=== PATIENT | male | born 1960 | race Caucasian/White ===

== ENCOUNTER 2019-10-13 10:02 | Emergency (ER) | payer MEDICARE, BC ==
[~2019-10-13] VITALS: Ht 172.7 cm; Wt 72.6 kg
[~2019-10-13 10:02] MED LIST: ATEN25 PO; Bactrim Ds Tab1 EACH PO; CILO100 PO; CITA20 PO; CLOP75 PO; GABA600 PO; GABA800 PO; HYDACE10B PO; HYDMOR2 PO; HYDMOR4 PO; HYDROCODON-ACE1 EAC4 PO; LEVSOD125 PO; LEVSOD25 PO; LIDO5TP TOP; METCAR500 PO; Norco 5-325 Ta1 EACH PO; ONDA4ODT SL; Protonix40 MG PO; SSRI; Zofran8 MG PO
[2019-10-13 10:53] LABS: BASOPHILS ABSOLUTE AUTO 0.06 K/mm3 (0.00-0.23); BASOPHILS PERCENT AUTO 1 % (0-2); EOSINOPHILS ABSOLUTE AUTO 0.07 K/mm3 (0.00-0.68); EOSINOPHILS PERCENT AUTO 1 % (0-6); Hemoglobin 13.8 g/dL (13.5-17.5); IMMATURE GRAN ABSOLUTE AUTO 0.03 K/mm3 (0.00-0.10); IMMATURE GRAN PERCENT AUTO 0 % (0-1); LYMPHOCYTES ABSOLUTE AUTO 1.66 K/mm3 (0.84-5.20); LYMPHOCYTES PERCENT AUTO 17 % (21-46); MONOCYTES ABSOLUTE AUTO 0.35 K/mm3 (0.16-1.47); MONOCYTES PERCENT AUTO 4 % (4-13); Mean Corpuscular HGB 31.7 pg (26.0-34.0); Mean Corpuscular HGB Conc 33.7 g/dL (31.5-36.5); Mean Corpuscular Volume 94 fL (80-100); Mean Platelet Volume 9.9 fL (9.1-12.4); NEUTROPHILS ABSOLUTE AUTO 7.53 K/mm3 (1.96-9.15); NEUTROPHILS PERCENT AUTO 78 % (41-73); Platelet Count 214 K/mm3 (150-400); RDW Coefficient Variation 13.8 % (11.7-14.2); RDW Standard Deviation 47.7 fL (35.1-46.3); Red Blood Cell Count 4.36 M/mm3 (4.30-5.90)
[2019-10-13 11:02] LABS: Base Excess Venous -1.1 mmol/L; Bicarbonate Venous 25.3 mmol/L (24.0-30.0); PCO2 Venous 19.5 mmHg (38-42); PO2 Venous 62.9 mmHg (38-42)
[2019-10-13 11:03] LABS: pH Blood Venous 7.62 (7.34-7.37)
[2019-10-13 11:04] LABS: Alanine Aminotransfer (ALT/SGP 20 U/L (12-78); Albumin, Blood 3.6 g/dL (3.4-5.0); Albumin/Globulin Ratio 0.9 (0.8-1.8); Anion Gap 11 mmol/L (6-16); Aspartate Aminotrans (AST/SGOT 20 U/L (12-37); Bilirubin, Total 0.2 mg/dL (0.1-1.0); Blood Urea Nitrogen 12 mg/dL (8-24); CO2, Blood 21 mmol/L (21-32); Calcium, Blood 9.1 mg/dL (8.5-10.1); Chloride, Blood 109 mmol/L (98-108); Creatinine, Blood 0.75 mg/dL (0.60-1.20); Glomerular Filtration Rate >60 (60-); Glucose, Blood 148 mg/dL (70-99); Sodium, Blood 141 mmol/L (136-145); Total Protein, Blood 7.6 g/dL (6.4-8.2)
[2019-10-13 11:06] LABS: Alk Phos 83 U/L (50-136); Troponin I <0.015 ng/mL (0.000-0.040)
[2019-10-13 12:22] LABS: Source, Urine Voided
[2019-10-13 12:27] LABS: Bilirubin, Urine Neg (Neg); Blood, Urine Neg (Neg); Glucose Qualitative, Urine Neg (Neg); Ketones, Urine 2+ (Neg); Leukocyte Esterase, Urine Neg (Neg); Nitrite, Urine Neg (Neg); Protein, Urine Neg (Neg); Urobilinogen, Urine NORM (Normal)
[2019-10-13 12:28] LABS: Appearance, Urine Clear (Clear); Color, Urine Yellow (P-Yellow)
[2019-10-13] MEDS ORDERED: Ativan1 MG SL (13:00)
[2019-10-14] MEDS ORDERED: ATOR20 PO (09:37)
[2019-10-14] MEDS ORDERED: AMIT50 PO (09:37)
== END 2019-10-13 13:18 | disposition home or self-care (01) ==
LOC: ER 10:02
PROVIDERS: Emergency Medicine
DX: R07.9 Chest pain, unspecified (principal); R10.13 Epigastric pain; R06.4 Hyperventilation; I10 Essential (primary) hypertension; E03.9 Hypothyroidism, unspecified; Z88.8 Allergy status to other drugs, medicaments and biological substances; Z79.899 Other long term (current) drug therapy; Z79.01 Long term (current) use of anticoagulants; Z87.891 Personal history of nicotine dependence
CPT/HCPCS: 36415; 71046; 80053; 81003; 82803; 83690; 83880; 84484; 85025; 93005; 93010; 96374; 96375; 99284-25; J1170; J2060; J2405

== ENCOUNTER 2019-10-14 08:23 | Emergency (ER) | payer MEDICARE, BC ==
[~2019-10-14] VITALS: Ht 175.3 cm; Wt 72.6 kg
[~2019-10-14 08:23] MED LIST changes: +Ativan1 MG SL
[2019-10-14 09:22] LABS: BASOPHILS ABSOLUTE AUTO 0.03 K/mm3 (0.00-0.23); BASOPHILS PERCENT AUTO 0 % (0-2); EOSINOPHILS ABSOLUTE AUTO 0.02 K/mm3 (0.00-0.68); EOSINOPHILS PERCENT AUTO 0 % (0-6); Hematocrit 40.5 % (37.0-53.0); Hemoglobin 13.7 g/dL (13.5-17.5); IMMATURE GRAN ABSOLUTE AUTO 0.01 K/mm3 (0.00-0.10); IMMATURE GRAN PERCENT AUTO 0 % (0-1); LYMPHOCYTES ABSOLUTE AUTO 1.77 K/mm3 (0.84-5.20); LYMPHOCYTES PERCENT AUTO 19 % (21-46); MONOCYTES ABSOLUTE AUTO 0.25 K/mm3 (0.16-1.47); MONOCYTES PERCENT AUTO 3 % (4-13); Mean Corpuscular HGB 31.9 pg (26.0-34.0); Mean Corpuscular HGB Conc 33.8 g/dL (31.5-36.5); Mean Corpuscular Volume 94 fL (80-100); Mean Platelet Volume 9.8 fL (9.1-12.4); NEUTROPHILS ABSOLUTE AUTO 7.09 K/mm3 (1.96-9.15); NEUTROPHILS PERCENT AUTO 77 % (41-73); Platelet Count 218 K/mm3 (150-400); RDW Standard Deviation 48.7 fL (35.1-46.3); Red Blood Cell Count 4.29 M/mm3 (4.30-5.90); White Blood Cell Count 9.17 K/mm3 (4.00-11.30)
[2019-10-14] MEDS ORDERED: AMIT50 PO (09:37)
[2019-10-14] MEDS ORDERED: ATOR20 PO (09:37)
[2019-10-14 09:45] LABS: Alanine Aminotransfer (ALT/SGP 17 U/L (12-78); Albumin, Blood 3.5 g/dL (3.4-5.0); Albumin/Globulin Ratio 0.9 (0.8-1.8); Alk Phos 88 U/L (50-136); Anion Gap 9 mmol/L (6-16); Aspartate Aminotrans (AST/SGOT 17 U/L (12-37); Bilirubin, Total 0.6 mg/dL (0.1-1.0); Blood Urea Nitrogen 11 mg/dL (8-24); CO2, Blood 23 mmol/L (21-32); Calcium, Blood 8.9 mg/dL (8.5-10.1); Chloride, Blood 110 mmol/L (98-108); Creatinine, Blood 0.73 mg/dL (0.60-1.20); Globulin, Blood 3.9 g/dL (2.2-4.0); Glomerular Filtration Rate >60 (60-); Glucose, Blood 151 mg/dL (70-99); Potassium, Blood 3.7 mmol/L (3.5-5.5); Sodium, Blood 142 mmol/L (136-145); Total Protein, Blood 7.4 g/dL (6.4-8.2)
[2019-10-14 09:46] LABS: Troponin I <0.015 ng/mL (0.000-0.040)
== END 2019-10-14 12:52 | disposition home or self-care (01) ==
LOC: ER 08:23
PROVIDERS: Emergency Medicine
DX: R10.30 Lower abdominal pain, unspecified (principal); I70.90 Unspecified atherosclerosis; I10 Essential (primary) hypertension; E03.9 Hypothyroidism, unspecified; E78.00 Pure hypercholesterolemia, unspecified; Z88.8 Allergy status to other drugs, medicaments and biological substances; Z79.899 Other long term (current) drug therapy
CPT/HCPCS: 74174; 80053; 83605; 83690; 84484; 85025; 96361; 96374; 96375; 99284-25; J1170; J2060; J2405; J7030; J7120; Q9967

== ENCOUNTER 2020-02-26 14:48 | Emergency (ER) | payer MEDICARE, BC ==
[~2020-02-26] VITALS: Ht 172.7 cm; Wt 72.6 kg
[~2020-02-26 14:48] MED LIST changes: +AMIT50 PO; +ATOR20 PO
[2020-02-26 15:33] LABS: BASOPHILS ABSOLUTE AUTO 0.02 K/mm3 (0.00-0.23); BASOPHILS PERCENT AUTO 0 % (0-2); EOSINOPHILS PERCENT AUTO 0 % (0-6); Hematocrit 39.5 % (37.0-53.0); Hemoglobin 13.5 g/dL (13.5-17.5); IMMATURE GRAN ABSOLUTE AUTO 0.02 K/mm3 (0.00-0.10); IMMATURE GRAN PERCENT AUTO 0 % (0-1); LYMPHOCYTES ABSOLUTE AUTO 1.21 K/mm3 (0.84-5.20); LYMPHOCYTES PERCENT AUTO 14 % (21-46); MONOCYTES ABSOLUTE AUTO 0.22 K/mm3 (0.16-1.47); MONOCYTES PERCENT AUTO 3 % (4-13); Mean Corpuscular HGB 31.8 pg (26.0-34.0); Mean Corpuscular HGB Conc 34.2 g/dL (31.5-36.5); Mean Corpuscular Volume 93 fL (80-100); Mean Platelet Volume 10.3 fL (9.1-12.4); NEUTROPHILS ABSOLUTE AUTO 7.15 K/mm3 (1.96-9.15); NEUTROPHILS PERCENT AUTO 83 % (41-73); Platelet Count 189 K/mm3 (150-400); RDW Coefficient Variation 13.8 % (11.7-14.2); Red Blood Cell Count 4.25 M/mm3 (4.30-5.90); White Blood Cell Count 8.62 K/mm3 (4.00-11.30)
[2020-02-26 15:45] LABS: Alanine Aminotransfer (ALT/SGP 17 U/L (12-78); Albumin, Blood 3.4 g/dL (3.4-5.0); Albumin/Globulin Ratio 0.8 (0.8-1.8); Alk Phos 72 U/L (50-136); Anion Gap 12 mmol/L (6-16); Aspartate Aminotrans (AST/SGOT 20 U/L (12-37); Bilirubin, Total 0.5 mg/dL (0.1-1.0); Blood Urea Nitrogen 12 mg/dL (8-24); Bun/Creatinine Ratio 18.4 (12.0-20.0); CO2, Blood 21 mmol/L (21-32); Calcium, Blood 8.8 mg/dL (8.5-10.1); Chloride, Blood 107 mmol/L (98-108); Creatinine, Blood 0.65 mg/dL (0.60-1.20); Glomerular Filtration Rate >60 (60-); Glucose, Blood 151 mg/dL (70-99); Magnesium, Blood 1.9 mg/dL (1.6-2.4); Potassium, Blood 3.8 mmol/L (3.5-5.5); Sodium, Blood 140 mmol/L (136-145); Total Protein, Blood 7.4 g/dL (6.4-8.2)
== END 2020-02-26 17:21 | disposition home or self-care (01) ==
LOC: ER 14:48
PROVIDERS: Emergency Medicine
DX: R10.12 Left upper quadrant pain (principal); I10 Essential (primary) hypertension; E03.9 Hypothyroidism, unspecified; E78.00 Pure hypercholesterolemia, unspecified; Z88.8 Allergy status to other drugs, medicaments and biological substances; Z79.899 Other long term (current) drug therapy; F17.210 Nicotine dependence, cigarettes, uncomplicated
CPT/HCPCS: 36415; 74174; 80053; 83605; 83690; 83735; 85025; 96374-59; 99284-25; J1170; Q9967

== ENCOUNTER 2021-02-16 11:40 | Emergency (ER) | payer MEDICARE, BC ==
[~2021-02-16] VITALS: Ht 175.3 cm; Wt 72.6 kg
[2021-02-16 12:36] LABS: BASOPHILS ABSOLUTE AUTO 0.04 K/mm3 (0.00-0.23); BASOPHILS PERCENT AUTO 1 % (0-2); EOSINOPHILS ABSOLUTE AUTO 0.01 K/mm3 (0.00-0.68); EOSINOPHILS PERCENT AUTO 0 % (0-6); Hematocrit 41.4 % (37.0-53.0); Hemoglobin 14.3 g/dL (13.5-17.5); IMMATURE GRAN ABSOLUTE AUTO 0.03 K/mm3 (0.00-0.10); IMMATURE GRAN PERCENT AUTO 0 % (0-1); LYMPHOCYTES ABSOLUTE AUTO 1.12 K/mm3 (0.84-5.20); LYMPHOCYTES PERCENT AUTO 14 % (21-46); MONOCYTES ABSOLUTE AUTO 0.25 K/mm3 (0.16-1.47); MONOCYTES PERCENT AUTO 3 % (4-13); Mean Corpuscular HGB 31.9 pg (26.0-34.0); Mean Corpuscular HGB Conc 34.5 g/dL (31.5-36.5); Mean Corpuscular Volume 92 fL (80-100); Mean Platelet Volume 9.9 fL (9.1-12.4); NEUTROPHILS ABSOLUTE AUTO 6.79 K/mm3 (1.96-9.15); NEUTROPHILS PERCENT AUTO 82 % (41-73); Platelet Count 202 K/mm3 (150-400); RDW Coefficient Variation 14.3 % (11.7-14.2); RDW Standard Deviation 48.9 fL (35.1-46.3); Red Blood Cell Count 4.48 M/mm3 (4.30-5.90); White Blood Cell Count 8.24 K/mm3 (4.00-11.30)
[2021-02-16 12:48] LABS: Alanine Aminotransfer (ALT/SGP 18 U/L (12-78); Albumin, Blood 3.6 g/dL (3.4-5.0); Albumin/Globulin Ratio 0.9 (0.8-1.8); Alk Phos 76 U/L (50-136); Anion Gap 9 mmol/L (6-16); Aspartate Aminotrans (AST/SGOT 19 U/L (12-37); Bilirubin, Total 0.4 mg/dL (0.1-1.0); Blood Urea Nitrogen 13 mg/dL (8-24); Bun/Creatinine Ratio 16.4 (12.0-20.0); CO2, Blood 22 mmol/L (21-32); Calcium, Blood 9.4 mg/dL (8.5-10.1); Chloride, Blood 106 mmol/L (98-108); Creatinine, Blood 0.79 mg/dL (0.60-1.20); Globulin, Blood 3.9 g/dL (2.2-4.0); Glomerular Filtration Rate >60 (60-); Glucose, Blood 148 mg/dL (70-99); Potassium, Blood 4.1 mmol/L (3.5-5.5); Sodium, Blood 137 mmol/L (136-145); Total Protein, Blood 7.5 g/dL (6.4-8.2)
== END 2021-02-16 15:10 | disposition home or self-care (01) ==
LOC: ER 11:40
PROVIDERS: Emergency Medicine
DX: R10.9 Unspecified abdominal pain (principal)
CPT/HCPCS: 74177; 80053; 83690; 85025; 93005; 93010; 96374-59; 96375; 99284-25; J1170; J2405; J7030; Q9967

== ENCOUNTER → 2021-05-21 | Outpatient (CLI) | payer MEDICARE, BC | LOC: LAB SHORT 14:50 → LAB 14:50 | DX: D48.5 Neoplasm of uncertain behavior of skin (principal) | CPT/HCPCS: 88305 ==

== ENCOUNTER → 2022-09-02 | Outpatient (CLI) | payer MEDICARE, BC | END | disposition home or self-care (01) | LOC: LAB 16:25 → LAB SHORT 16:25 | PROVIDERS: Hospitalist | DX: Z12.5 Encounter for screening for malignant neoplasm of prostate (principal) | CPT/HCPCS: G0103 ==

== ENCOUNTER 2023-09-13 18:19 | Emergency (ER) | payer MEDICARE, BC ==
[~2023-09-13] VITALS: Ht 170.2 cm; Wt 74.8 kg
[2023-09-13 19:00] LABS: BASOPHILS ABSOLUTE AUTO 0.09 K/mm3 (0.00-0.23); BASOPHILS PERCENT AUTO 1 % (0-2); EOSINOPHILS ABSOLUTE AUTO 0.01 K/mm3 (0.00-0.68); EOSINOPHILS PERCENT AUTO 0 % (0-6); Hematocrit 41.9 % (37.0-53.0); Hemoglobin 14.6 g/dL (13.5-17.5); IMMATURE GRAN ABSOLUTE AUTO 0.04 K/mm3 (0.00-0.10); IMMATURE GRAN PERCENT AUTO 0 % (0-1); LYMPHOCYTES ABSOLUTE AUTO 1.67 K/mm3 (0.84-5.20); LYMPHOCYTES PERCENT AUTO 12 % (21-46); MONOCYTES ABSOLUTE AUTO 0.46 K/mm3 (0.16-1.47); MONOCYTES PERCENT AUTO 3 % (4-13); Mean Corpuscular HGB 31.7 pg (26.0-34.0); Mean Corpuscular HGB Conc 34.8 g/dL (31.5-36.5); Mean Corpuscular Volume 91 fL (80-100); Mean Platelet Volume 9.4 fL (9.1-12.4); NEUTROPHILS ABSOLUTE AUTO 11.29 K/mm3 (1.96-9.15); NEUTROPHILS PERCENT AUTO 83 % (41-73); Platelet Count 241 K/mm3 (150-400); RDW Coefficient Variation 14.2 % (11.7-14.2); RDW Standard Deviation 47.3 fL (35.1-46.3); Red Blood Cell Count 4.61 M/mm3 (4.30-5.90); White Blood Cell Count 13.56 K/mm3 (4.00-11.30)
[2023-09-13 19:13] LABS: Albumin, Blood 3.8 g/dL (3.4-5.0); Albumin/Globulin Ratio 0.9 (0.8-1.8); Bilirubin, Total 0.4 mg/dL (0.1-1.0); Bun/Creatinine Ratio 14.1 (12.0-20.0); Calcium, Blood 9.5 mg/dL (8.5-10.1); Creatinine, Blood 0.78 mg/dL (0.60-1.20); Globulin, Blood 4.1 g/dL (2.2-4.0); Total Protein, Blood 7.9 g/dL (6.4-8.2)
[2023-09-13 19:22] LABS: International Normalized Ratio 1.04; Prothrombin Time Results 10.9 Sec (9.7-11.5)
[2023-09-13 22:34] LABS: Magnesium, Blood 1.9 mg/dL (1.6-2.4)
[2023-09-14 01:43] VITALS: BP 137/75
== END 2023-09-14 01:38 | disposition home or self-care (01) ==
LOC: ER 18:19
PROVIDERS: Emergency Medicine
DX: K55.1 Chronic vascular disorders of intestine (principal); K86.1 Other chronic pancreatitis; R07.9 Chest pain, unspecified; I10 Essential (primary) hypertension; D69.6 Thrombocytopenia, unspecified; E03.9 Hypothyroidism, unspecified; E78.00 Pure hypercholesterolemia, unspecified; F17.210 Nicotine dependence, cigarettes, uncomplicated; Z79.899 Other long term (current) drug therapy; Z88.4 Allergy status to anesthetic agent; Z88.5 Allergy status to narcotic agent
CPT/HCPCS: 71045; 74174; 80053; 83605; 83690; 83735; 84145; 84484; 85025; 85610; 85730; 93005; 93010; 96374; 96375; 99285-25; J1170; J2405; J7030; Q9967

== ENCOUNTER 2023-09-16 06:03 | Day surgery (SDC) | payer MEDICARE, BC ==
[2023-09-16] VITALS (33 sets, daily range): BP systolic 106–151; BP diastolic 64–92
[~2023-09-16] VITALS: Ht 170.2 cm; Wt 73.2 kg
[2023-09-16] MEDS ORDERED: CLOP75 PO (06:22)
[2023-09-16] MEDS ORDERED: CILO100 PO (06:23)
[2023-09-16] MEDS ORDERED: HYDMOR2 PO ×3 (10:33→18:00)
--- NOTE | 2023-09-16 10:34 | NUR ---
1015 LATE ENTRY- PT NOTED TO HAVE SWELLING AND A HARD PALPABLE MASS OVER INCISION UNDER DRESSING. I CONSULTED WITH SURGEON, SURGEON CONCERNED WITH POSSIBLE HEMATOMA. SURGEON SPOKE WITH PATIENT ABOUT THE NEED TO COME BACK TO THE OR TODAY FOR AN EVACUATION. I NOTIFIED THE RECIEVING RN, AND REQUESTED THAT THEY KEEP PT NPO. PT AGREES AND PTS DAUGHTER WAS NOTIFIED. PT TRANSFERED TO ROOM 217, STABLE, UNTIL TIME TO RETURN TO THE OR.
--- NOTE | 2023-09-16 11:04 | NUR ---
PATIENT ARRIVED FROM PACU TODAY AT 1030. POD 0 RIGHT TOTAL HIP PATIENT IS A&OX4. VS ARE WNL AND IS ON RA. AUTO VINYL TOP INSTALLER REPORTED AT BEDSIDE "THIS PATIENT IS GOING TO GO BACK TO THE OR SINCE HIS RIGHT HIP INCISION SITE IS HARD/SWOLLEN. DR. LEWIS IS AWARE AND HAS VIEWED THE INCISION WELL. KEEP HIM NPO WE WILL COME BACK TO GET HIM AGAIN IN A COUPLE OF HOURS". PATIENTS RIGHT HIP IS SWOLLEN AND HARD TO PALPATE. HIS AQUACEL DRESSING INTACT AT THIS TIME. PATIENT REPORTS 9/10 PAIN AND REPORTS "PRESSURE" ON THAT RIGHT HIP. PATIENT WAS GIVEN IV AND PO DILAUDID TO MANAGE HIS PAIN AT THIS TIME. HE IS ABLE TO MOVE ALL FINGERS AND TOES WHEN ASKED. PEDAL PULSES ARE STRONG AND WARM TO TOUCH. PATIENT IS LAYING IN BED WITH CALL LIGHT IN REACH. FAMILY AT BEDSIDE.
--- NOTE | 2023-09-16 11:43 | NUR ---
HARD PERSCRIPTION WAS GIVEN TO BRIELLE THE FAMILY MEMBER/CAREGIVER.
--- NOTE | 2023-09-16 12:26 | NUR ---
THIS NURSE OUTLINED WITH MARKER PATIENTS RIGHT HIP SWELLING.
--- NOTE | 2023-09-16 12:58 | NUR ---
PATIENT IS LEAVING FOR THE OR FOR THE SECOND TIME.
--- NOTE | 2023-09-16 13:23 | NUR ---
PT HERE FROM 217 VIA A BRING BACK. S/P RIGHT MARQUITA FOR HEMATOMA EVACUATION. PT HAS POLAR PACK IN PLACE. History, Chart, Medications and Allergies reviewed before start of procedure.Pre-Op teaching done. Pt verbalizes understanding. Patient confirms NPO status and agrees with scheduled surgery.
--- NOTE | 2023-09-16 13:48 | NUR ---
09/16/23 1348 Leah Ruiz NO PREOP ANTIBIOTICS PER .
--- NOTE | 2023-09-16 14:40 | NUR ---
ASSUMED CARE AT 1430 . PT A/O DENIES NEED OF PAIN MEDICATION AT THIS TIME RATES PAIN 8 /10 WENT OVER PAIN SCALE AND CONFIRMS YES IT IS AN 8 AND NO HE DOES NOT WANT ANY PAIN MEDICATION . DRSG IS CDI AREA IS SOFT TO TOUCH WIGGLES TOES SENSATION WNL EAGER FOR COFFEE VERY PLEASANT
--- NOTE | 2023-09-16 15:15 | NUR ---
PATIENT JUST CAME BACK FROM THE OR AGAIN. PATIENT HAD HIS RIGHT HIP HEMATOMA CLEANED OUT. PATIENT REPORTS "MY PAIN IS SO MUCH BETTER THAN WHAT IT WAS BEFORE! I DON'T EVEN NEED PAIN MEDS AT THIS TIME". HIS RIGHT HIP HAS AN AQUACEL AND IS C/D/I. PATIENTS RIGHT HIP SWELLING HAS SIGNIFICANTLY DECREASED SINCE PRIOR TO GOING TO THE OR A SECOND TIME. THERE IS NO HARDNESS NOTED ON HIS RIGHT HIP/GROIN AREA LIKE THERE WAS BEFORE. PATIENT DENIES NUMBNESS OR TINGLING IN ALL EXTREMITIES. HE IS TOLERATING PO INTAKE. HE IS LAYING IN BED WITH CALL LIGHT IN REACH AND FAMILY AT BEDSIDE.
--- NOTE | 2023-09-16 17:45 | NUR ---
SHIFT SUMMARY: POD 0 RIGHT TOTAL HIP WITH HEMATOMA I&D (SEE PREVIOUS NOTES) PATIENT IS A&OX4. VS ARE WNL AND IS ON RA. PAIN IS MANAGED WITH PO DILAUDID, PO TYLENOL, IV DILAUDID, AND IV TORADOL. HIS RIGHT HIP HAS AN AQUACEL THAT IS C/D/I. PATIENTS RIGHT HIP IS PALPABLE WITH NO HARDNESS OR SWELLING NOTED LIKE IT WAS PREVIOUS TO THE I&D. PATIENT DENIES NUMBNESS OR TINGLING AND CAN MOVE ALL FINGERS AND TOES. HE IS A SBA WITH FWW AND GAIT BELT AND HAS EVEN WALKED A COUPLE OF TIMES IN THE HALLWAYS. PATIENT IS TOLERATING PO INTAKE AND IS VOIDING. PATIENT IS SITTING UP IN THE RECLINER WITH CALL LIGHT IN REACH AND FAMILY AT BEDSIDE.
[2023-09-17 04:03] LABS: BASOPHILS ABSOLUTE AUTO 0.02 K/mm3 (0.00-0.23); BASOPHILS PERCENT AUTO 0 % (0-2); EOSINOPHILS ABSOLUTE AUTO 0.01 K/mm3 (0.00-0.68); EOSINOPHILS PERCENT AUTO 0 % (0-6); Hematocrit 29.8 % (37.0-53.0); IMMATURE GRAN ABSOLUTE AUTO 0.03 K/mm3 (0.00-0.10); IMMATURE GRAN PERCENT AUTO 0 % (0-1); LYMPHOCYTES ABSOLUTE AUTO 3.22 K/mm3 (0.84-5.20); LYMPHOCYTES PERCENT AUTO 25 % (21-46); MONOCYTES ABSOLUTE AUTO 1.06 K/mm3 (0.16-1.47); MONOCYTES PERCENT AUTO 8 % (4-13); Mean Corpuscular HGB 31.5 pg (26.0-34.0); Mean Corpuscular HGB Conc 33.6 g/dL (31.5-36.5); Mean Corpuscular Volume 94 fL (80-100); Mean Platelet Volume 9.6 fL (9.1-12.4); NEUTROPHILS ABSOLUTE AUTO 8.46 K/mm3 (1.96-9.15); NEUTROPHILS PERCENT AUTO 66 % (41-73); Platelet Count 149 K/mm3 (150-400); RDW Coefficient Variation 14.2 % (11.7-14.2); RDW Standard Deviation 49.8 fL (35.1-46.3); Red Blood Cell Count 3.17 M/mm3 (4.30-5.90)
[2023-09-17 04:18] LABS: Bun/Creatinine Ratio 18.4 (12.0-20.0); Calcium, Blood 7.9 mg/dL (8.5-10.1); Creatinine, Blood 0.76 mg/dL (0.60-1.20); Potassium, Blood 3.9 mmol/L (3.5-5.5)
[2023-09-17 05:59] VITALS: BP 124/76
--- NOTE | 2023-09-17 06:53 | NUR ---
SHIFT SUMMARY PT IS HERE POD#1 FOR A RIGHT TOTAL HIP. PT HAS BEEN UP WALKING THE HALLS OF THE UNIT SEVERAL TIMES THIS SHIFT. PAIN MANAGED PER EMAR. VITAL SIGNS HAVE BEEN STABLE. NO ACUTE EVENTS OVERNIGHT. BED IS IN LOWEST POSITION, CALL LIGHT IS WITHIN REACH.
[2023-09-17 08:56] VITALS: BP 141/85
--- NOTE | 2023-09-17 10:03 | NUR ---
DISCHARGE NOTE: PATIENT AND PATIENTS CAREGIVER BRIELLE WERE EDUCATED ON DISCHARGE INSTRUCTIONS. BOTH VERBALIZED UNDERSTANDING OF INSTRUCTIONS AND HAD NO FURTHER QUESTIONS AT THIS TIME. IV WAS TAKEN OUT AND WNL. PAIN IS MANAGED WITH ORAL PAIN MEDS. HIS RIGHT HIP HAS AN AQUACEL AND IS C/D/I. DENIES NUMBNESS OR TINGLING THROUGHOUT ALL EXTREMITIES. HE IS A SBA WITH FWW AND GAIT BELT. PATIENT IS TOLERATING PO INTAKE AND IS VOIDING. PATIENT IS DRESSED AND HAS PERSONAL ITEMS IN THE ROOM GATHERED. HE IS BEING WHEELCHAIRED OUT TO HIS FAMILY MEMBERS CAR TO BE TAKEN HOME.
== END 2023-09-17 10:05 | disposition home or self-care (01) ==
LOC: SURS 06:03 → ORSCMMR 06:03 → ORD 07:30 → SURS 10:03 → ORSCMMR 09-17 10:05
PROVIDERS: Orthopaedic Surgery
PROC: 0SR90JZ Replacement of Right Hip Joint with Synthetic Substitute, Open Approach (ICD-10-PCS; principal; 2023-09-16 07:30)
PROC: 0JCL0ZZ Extirpation of Matter from Right Upper Leg Subcutaneous Tissue and Fascia, Open Approach (ICD-10-PCS; principal; 2023-09-16 07:30)
DX: M16.11 Unilateral primary osteoarthritis, right hip (principal); L76.32 Postprocedural hematoma of skin and subcutaneous tissue following other procedure; E78.5 Hyperlipidemia, unspecified; I10 Essential (primary) hypertension; E03.9 Hypothyroidism, unspecified; F41.9 Anxiety disorder, unspecified; F32.A Depression, unspecified; Z79.899 Other long term (current) drug therapy; Z87.891 Personal history of nicotine dependence
CPT/HCPCS: 36415; 72170; 80048; 85025; 97110; 97116; 97162; A9270; C1776; J0171; J0690; J0735; J1100; J1170; J1885; J2250; J2371; J2405; J2704; J2795; J3010; J7120

== ENCOUNTER 2023-11-13 08:29 | Emergency (ER) | payer MEDICARE, BC ==
[~2023-11-13] VITALS: Ht 170.2 cm; Wt 72.6 kg
[2023-11-13] MEDS ORDERED: HYDROmorphone HCl/Pf 1MG SYR IV ONE ×2 (08:45→09:25)
[2023-11-13 09:06] LABS: BASOPHILS ABSOLUTE AUTO 0.06 K/mm3 (0.00-0.23); BASOPHILS PERCENT AUTO 1 % (0-2); EOSINOPHILS ABSOLUTE AUTO 0.02 K/mm3 (0.00-0.68); EOSINOPHILS PERCENT AUTO 0 % (0-6); Hematocrit 38.3 % (37.0-53.0); Hemoglobin 12.9 g/dL (13.5-17.5); IMMATURE GRAN ABSOLUTE AUTO 0.02 K/mm3 (0.00-0.10); IMMATURE GRAN PERCENT AUTO 0 % (0-1); LYMPHOCYTES ABSOLUTE AUTO 1.25 K/mm3 (0.84-5.20); LYMPHOCYTES PERCENT AUTO 14 % (21-46); MONOCYTES ABSOLUTE AUTO 0.42 K/mm3 (0.16-1.47); MONOCYTES PERCENT AUTO 5 % (4-13); Mean Corpuscular HGB 29.3 pg (26.0-34.0); Mean Corpuscular HGB Conc 33.7 g/dL (31.5-36.5); Mean Corpuscular Volume 87 fL (80-100); NEUTROPHILS ABSOLUTE AUTO 7.46 K/mm3 (1.96-9.15); NEUTROPHILS PERCENT AUTO 81 % (41-73); Platelet Count 261 K/mm3 (150-400); RDW Coefficient Variation 15.3 % (11.7-14.2); RDW Standard Deviation 48.9 fL (35.1-46.3); White Blood Cell Count 9.23 K/mm3 (4.00-11.30)
[2023-11-13 09:27] LABS: Albumin, Blood 3.4 g/dL (3.4-5.0); Albumin/Globulin Ratio 0.8 (0.8-1.8); Bilirubin, Total 0.4 mg/dL (0.1-1.0); Bun/Creatinine Ratio 12.3 (12.0-20.0); Calcium, Blood 9.4 mg/dL (8.5-10.1); Creatinine, Blood 0.73 mg/dL (0.60-1.20); Globulin, Blood 4.1 g/dL (2.2-4.0); Total Protein, Blood 7.5 g/dL (6.4-8.2)
[2023-11-13 12:49] VITALS: BP 123/80
== END 2023-11-13 12:54 | disposition home or self-care (01) ==
LOC: ER 08:29
PROVIDERS: Physician Assistant
DX: R10.12 Left upper quadrant pain (principal); R10.32 Left lower quadrant pain; R07.9 Chest pain, unspecified; F17.210 Nicotine dependence, cigarettes, uncomplicated; I10 Essential (primary) hypertension; E03.9 Hypothyroidism, unspecified; E78.00 Pure hypercholesterolemia, unspecified; Z87.19 Personal history of other diseases of the digestive system; Z79.02 Long term (current) use of antithrombotics/antiplatelets; Z79.899 Other long term (current) drug therapy; Z88.4 Allergy status to anesthetic agent; Z88.5 Allergy status to narcotic agent
CPT/HCPCS: 71046; 74177; 80053; 83605; 83690; 83880; 84484; 85025; 93005; 93010; 96374-59; 96376; 99285-25; J1170; Q9967

== ENCOUNTER 2023-12-01 10:36 | Emergency (ER) | payer MEDICARE, BC ==
[~2023-12-01] VITALS: Ht 172.7 cm; Wt 72.6 kg
[2023-12-01 11:03] LABS: BASOPHILS ABSOLUTE AUTO 0.06 K/mm3 (0.00-0.23); BASOPHILS PERCENT AUTO 1 % (0-2); EOSINOPHILS ABSOLUTE AUTO 0.02 K/mm3 (0.00-0.68); EOSINOPHILS PERCENT AUTO 0 % (0-6); Hemoglobin 14.3 g/dL (13.5-17.5); IMMATURE GRAN ABSOLUTE AUTO 0.03 K/mm3 (0.00-0.10); IMMATURE GRAN PERCENT AUTO 0 % (0-1); LYMPHOCYTES ABSOLUTE AUTO 1.72 K/mm3 (0.84-5.20); LYMPHOCYTES PERCENT AUTO 14 % (21-46); MONOCYTES ABSOLUTE AUTO 0.31 K/mm3 (0.16-1.47); MONOCYTES PERCENT AUTO 3 % (4-13); Mean Corpuscular HGB 29.2 pg (26.0-34.0); Mean Corpuscular HGB Conc 33.3 g/dL (31.5-36.5); Mean Corpuscular Volume 88 fL (80-100); Mean Platelet Volume 9.4 fL (9.1-12.4); NEUTROPHILS ABSOLUTE AUTO 9.96 K/mm3 (1.96-9.15); NEUTROPHILS PERCENT AUTO 82 % (41-73); Platelet Count 269 K/mm3 (150-400); RDW Coefficient Variation 15.8 % (11.7-14.2); RDW Standard Deviation 50.5 fL (35.1-46.3)
[2023-12-01 11:30] LABS: Albumin, Blood 3.8 g/dL (3.4-5.0); Albumin/Globulin Ratio 0.9 (0.8-1.8); Bilirubin, Total 0.4 mg/dL (0.1-1.0); Bun/Creatinine Ratio 17.5 (12.0-20.0); Calcium, Blood 9.6 mg/dL (8.5-10.1); Creatinine, Blood 0.74 mg/dL (0.60-1.20); Globulin, Blood 4.3 g/dL (2.2-4.0); Total Protein, Blood 8.1 g/dL (6.4-8.2)
[2023-12-01] MEDS ORDERED: Labetalol HCL 5 MG/ML 4ML Injection (Single Dose) IV ONE (11:50)
[2023-12-01] MEDS ORDERED: HYDROmorphone HCl/Pf 1MG SYR IV ONE (11:50)
[2023-12-01] MEDS ORDERED: Esmolol HCL 2500mg/250ml Prema 250 ML IV SCH (11:50)
[2023-12-01] MEDS ORDERED: Ondansetron HCl 2 MG / ML 2ML Vial IV ONE (12:00)
[2023-12-01] MEDS ORDERED: ONDA4ODT MM (13:53)
[2023-12-01 14:23] VITALS: BP 127/79
== END 2023-12-01 16:14 | disposition home or self-care (01) ==
LOC: ER 10:36
PROVIDERS: Student in an Organized Health Care Education/Training Program
DX: K55.1 Chronic vascular disorders of intestine (principal); M54.6 Pain in thoracic spine; R11.2 Nausea with vomiting, unspecified; R07.9 Chest pain, unspecified; R10.9 Unspecified abdominal pain; Z88.0 Allergy status to penicillin; Z88.8 Allergy status to other drugs, medicaments and biological substances; Z79.899 Other long term (current) drug therapy; I10 Essential (primary) hypertension; E03.9 Hypothyroidism, unspecified; E78.00 Pure hypercholesterolemia, unspecified; F17.210 Nicotine dependence, cigarettes, uncomplicated
CPT/HCPCS: 71046; 71275; 74174; 80053; 84484; 85025; 93005; 93010; 96374-59; 96375-59; 99285-25; J1170; J2405; Q9967

== ENCOUNTER → 2023-12-29 | Outpatient (CLI) | payer MEDICARE, BC ==
[~2023-12-29] MED LIST changes: +ONDA4ODT MM
[2023-12-29 19:50] LABS: CHOL/HDL RATIO 4.7; Cholesterol 207 mg/dL (50-200); Free Thyroxine 1.44 ng/dL (0.70-1.60); HDL Cholesterol 44 mg/dL (>39); Low Density Lipoprotein Chol 130 mg/dL (0-110); Triglycerides 166 mg/dL (30-160); Very Low Density Lipoprot Chol 33 mg/dL (6-32)
[2023-12-29 19:53] LABS: Thyroid Stimulating Hormone 0.032 uIU/mL (0.360-4.800)
== END | disposition home or self-care (01) ==
LOC: LAB 08:30 → LAB SHORT 08:30
PROVIDERS: Hospitalist
DX: E03.9 Hypothyroidism, unspecified (principal); E78.5 Hyperlipidemia, unspecified
CPT/HCPCS: 80061; 84439; 84443

== ENCOUNTER 2024-02-14 08:42 | Emergency (ER) | payer MEDICARE, BC ==
[~2024-02-14] VITALS: Ht 172.7 cm; Wt 72.6 kg
[2024-02-14] MEDS ORDERED: Ketorolac Tromethamine 30mg Vial IV ONE (08:55)
[2024-02-14 09:08] LABS: BASOPHILS ABSOLUTE AUTO 0.04 K/mm3 (0.00-0.23); BASOPHILS PERCENT AUTO 0 % (0-2); EOSINOPHILS ABSOLUTE AUTO 0.05 K/mm3 (0.00-0.68); EOSINOPHILS PERCENT AUTO 1 % (0-6); Hematocrit 40.2 % (37.0-53.0); Hemoglobin 13.8 g/dL (13.5-17.5); IMMATURE GRAN ABSOLUTE AUTO 0.03 K/mm3 (0.00-0.10); IMMATURE GRAN PERCENT AUTO 0 % (0-1); LYMPHOCYTES ABSOLUTE AUTO 2.07 K/mm3 (0.84-5.20); LYMPHOCYTES PERCENT AUTO 21 % (21-46); MONOCYTES ABSOLUTE AUTO 0.37 K/mm3 (0.16-1.47); MONOCYTES PERCENT AUTO 4 % (4-13); Mean Corpuscular HGB 29.5 pg (26.0-34.0); Mean Corpuscular HGB Conc 34.3 g/dL (31.5-36.5); Mean Corpuscular Volume 86 fL (80-100); Mean Platelet Volume 9.1 fL (9.1-12.4); NEUTROPHILS ABSOLUTE AUTO 7.32 K/mm3 (1.96-9.15); NEUTROPHILS PERCENT AUTO 74 % (41-73); Platelet Count 254 K/mm3 (150-400); RDW Coefficient Variation 17.8 % (11.7-14.2); Red Blood Cell Count 4.68 M/mm3 (4.30-5.90); White Blood Cell Count 9.88 K/mm3 (4.00-11.30)
[2024-02-14] MEDS ORDERED: HYDROmorphone HCl/Pf 1MG SYR IV ONE ×2 (09:15→10:15)
[2024-02-14 09:30] LABS: Albumin, Blood 3.6 g/dL (3.4-5.0); Bilirubin, Total 0.3 mg/dL (0.1-1.0); Bun/Creatinine Ratio 15.6 (12.0-20.0); Calcium, Blood 9.1 mg/dL (8.5-10.1); Creatinine, Blood 0.83 mg/dL (0.60-1.20); Globulin, Blood 3.6 g/dL (2.2-4.0); Magnesium, Blood 1.9 mg/dL (1.6-2.4); Potassium, Blood 3.9 mmol/L (3.5-5.5); Total Protein, Blood 7.2 g/dL (6.4-8.2)
[2024-02-14] MEDS ORDERED: Clopidogrel Bisulfate 75 MG Tab PO ONE (10:20)
[2024-02-14] MEDS ORDERED: Dicyclomine HCl 20 MG Tab PO ONE (10:20)
[2024-02-14] MEDS ORDERED: Cilostazol 50 MG Tab PO ONE (10:20)
[2024-02-14] MEDS ORDERED: NS 1,000 ML IV SCH (10:20)
[2024-02-14] MEDS ORDERED: DICY20 PO (11:42)
[2024-02-14 12:15] VITALS: BP 121/74
== END 2024-02-14 13:00 | disposition home or self-care (01) ==
LOC: ER 08:42
PROVIDERS: Student in an Organized Health Care Education/Training Program
DX: K55.1 Chronic vascular disorders of intestine (principal); I10 Essential (primary) hypertension; E03.9 Hypothyroidism, unspecified; E78.00 Pure hypercholesterolemia, unspecified; F17.210 Nicotine dependence, cigarettes, uncomplicated; Z88.0 Allergy status to penicillin; Z88.8 Allergy status to other drugs, medicaments and biological substances; Z79.02 Long term (current) use of antithrombotics/antiplatelets; Z79.899 Other long term (current) drug therapy
CPT/HCPCS: 74174; 80053; 83605; 83690; 83735; 85025; 93005; 93010; 96361; 96374-59; 96375-59; 96376-59; 99285-25; A9270; J1170; J1885; J7030; Q9967

== ENCOUNTER 2024-03-28 14:35 | Emergency (ER) | payer MEDICARE, BC ==
[~2024-03-28] VITALS: Ht 170.2 cm; Wt 70.3 kg
[~2024-03-28 14:35] MED LIST changes: +DICY20 PO; +EUTHYROX175 MC1 PO
[2024-03-28 15:04] LABS: BASOPHILS ABSOLUTE AUTO 0.06 K/mm3 (0.00-0.23); BASOPHILS PERCENT AUTO 0 % (0-2); EOSINOPHILS PERCENT AUTO 0 % (0-6); Hemoglobin 14.6 g/dL (13.5-17.5); IMMATURE GRAN ABSOLUTE AUTO 0.05 K/mm3 (0.00-0.10); IMMATURE GRAN PERCENT AUTO 0 % (0-1); LYMPHOCYTES ABSOLUTE AUTO 1.67 K/mm3 (0.84-5.20); LYMPHOCYTES PERCENT AUTO 11 % (21-46); MONOCYTES ABSOLUTE AUTO 0.51 K/mm3 (0.16-1.47); MONOCYTES PERCENT AUTO 3 % (4-13); Mean Corpuscular HGB 30.7 pg (26.0-34.0); Mean Corpuscular Volume 91 fL (80-100); Mean Platelet Volume 8.7 fL (9.1-12.4); NEUTROPHILS ABSOLUTE AUTO 13.08 K/mm3 (1.96-9.15); NEUTROPHILS PERCENT AUTO 85 % (41-73); Platelet Count 253 K/mm3 (150-400); RDW Standard Deviation 53.5 fL (35.1-46.3); Red Blood Cell Count 4.75 M/mm3 (4.30-5.90); White Blood Cell Count 15.37 K/mm3 (4.00-11.30)
[2024-03-28] MEDS ORDERED: HYDROmorphone HCl/Pf 1MG SYR IV ONE ×2 (15:25→16:25)
[2024-03-28] MEDS ORDERED: NS 1,000 ML IV SCH (15:25)
[2024-03-28 15:28] LABS: Bilirubin, Total 0.5 mg/dL (0.1-1.0); Bun/Creatinine Ratio 11.3 (12.0-20.0); Creatinine, Blood 0.79 mg/dL (0.60-1.20); Potassium, Blood 3.5 mmol/L (3.5-5.5)
[2024-03-28] MEDS ORDERED: Ondansetron HCl 2 MG / ML 2ML Vial IV ONE (15:35)
[2024-03-28 15:51] LABS: International Normalized Ratio 1.03
[2024-03-28] MEDS ORDERED: Dicyclomine HCl 20 MG Tab PT ONE (17:00)
[2024-03-28] MEDS ORDERED: Dicyclomine HCl 10 MG/ML 2ML Amp IM ONE (17:05)
[2024-03-28] MEDS ORDERED: DICY20 PO (17:59)
[2024-03-28 18:14] VITALS: BP 99/64
== END 2024-03-28 18:17 | disposition home or self-care (01) ==
LOC: ER 14:35
PROVIDERS: Nurse Practitioner; Student in an Organized Health Care Education/Training Program
DX: K31.89 Other diseases of stomach and duodenum (principal); F17.210 Nicotine dependence, cigarettes, uncomplicated; I10 Essential (primary) hypertension; E03.9 Hypothyroidism, unspecified; E78.00 Pure hypercholesterolemia, unspecified; Z79.899 Other long term (current) drug therapy; Z79.02 Long term (current) use of antithrombotics/antiplatelets; Z88.0 Allergy status to penicillin
CPT/HCPCS: 71046; 74174; 80053; 84484; 85025; 85610; 86850; 86900; 86901; 93005; 93010; 96361; 96372-59; 96374-59; 96375-59; 96376-59; 99285-25; J0500; J1170; J2405; J7030; Q9967

== ENCOUNTER → 2024-11-08 | Outpatient (CLI) | payer MEDICARE, BC ==
[2024-11-08 20:06] LABS: Free Thyroxine 1.33 ng/dL (0.70-1.60); Thyroid Stimulating Hormone 0.012 uIU/mL (0.360-4.800)
== END ==
LOC: LAB 15:45 → LAB SHORT 15:45
PROVIDERS: Hospitalist
DX: E03.9 Hypothyroidism, unspecified (principal)
CPT/HCPCS: 84439; 84443

== ENCOUNTER 2024-12-19 10:41 | Emergency (ER) | payer MEDICARE, BC ==
[~2024-12-19] VITALS: Ht 177.8 cm; Wt 79.4 kg
[2024-12-19] MEDS ORDERED: Ondansetron HCl 2 MG / ML 2ML Vial IV ONE ×2 (10:55→11:05)
[2024-12-19] MEDS ORDERED: Morphine Sulfate 4 MG/1 ML Injection IV ONE (11:05)
[2024-12-19 11:24] LABS: BASOPHILS ABSOLUTE AUTO 0.07 K/mm3 (0.00-0.23); BASOPHILS PERCENT AUTO 1 % (0-2); EOSINOPHILS ABSOLUTE AUTO 0.01 K/mm3 (0.00-0.68); EOSINOPHILS PERCENT AUTO 0 % (0-6); Hematocrit 43.2 % (37.0-53.0); Hemoglobin 14.9 g/dL (13.5-17.5); IMMATURE GRAN ABSOLUTE AUTO 0.05 K/mm3 (0.00-0.10); IMMATURE GRAN PERCENT AUTO 0 % (0-1); LYMPHOCYTES ABSOLUTE AUTO 1.26 K/mm3 (0.84-5.20); LYMPHOCYTES PERCENT AUTO 10 % (21-46); MONOCYTES ABSOLUTE AUTO 0.31 K/mm3 (0.16-1.47); MONOCYTES PERCENT AUTO 3 % (4-13); Mean Corpuscular HGB 31.6 pg (26.0-34.0); Mean Corpuscular HGB Conc 34.5 g/dL (31.5-36.5); Mean Corpuscular Volume 92 fL (80-100); Mean Platelet Volume 9.2 fL (9.1-12.4); NEUTROPHILS ABSOLUTE AUTO 10.61 K/mm3 (1.96-9.15); NEUTROPHILS PERCENT AUTO 86 % (41-73); Platelet Count 220 K/mm3 (150-400); RDW Coefficient Variation 13.7 % (11.7-14.2); RDW Standard Deviation 46.9 fL (35.1-46.3); Red Blood Cell Count 4.71 M/mm3 (4.30-5.90); White Blood Cell Count 12.31 K/mm3 (4.00-11.30)
[2024-12-19] MEDS ORDERED: HYDROmorphone HCl/Pf 1MG SYR IV ONE (11:25)
[2024-12-19 11:55] LABS: Albumin, Blood 3.7 g/dL (3.4-5.0); Albumin/Globulin Ratio 0.9 (0.8-1.8); Bilirubin, Total 0.6 mg/dL (0.1-1.0); Bun/Creatinine Ratio 15.6 (12.0-20.0); Calcium, Blood 9.3 mg/dL (8.5-10.1); Creatinine, Blood 0.77 mg/dL (0.60-1.20); Globulin, Blood 3.9 g/dL (2.2-4.0); Potassium, Blood 3.8 mmol/L (3.5-5.5); Total Protein, Blood 7.6 g/dL (6.4-8.2)
[2024-12-19 12:03] LABS: Magnesium, Blood 1.7 mg/dL (1.6-2.4)
[2024-12-19 12:50] VITALS: BP 114/84
[2024-12-19] MEDS ORDERED: NS 1,000 ML IV SCH (13:15)
[2024-12-19] MEDS ORDERED: ACET500 PO (13:48)
[2024-12-19] MEDS ORDERED: ONDA4 PO (13:48)
== END 2024-12-19 15:14 | disposition home or self-care (01) ==
LOC: ER 10:41
PROVIDERS: Emergency Medicine; Student in an Organized Health Care Education/Training Program
DX: K85.90 Acute pancreatitis without necrosis or infection, unspecified (principal); I10 Essential (primary) hypertension; F17.210 Nicotine dependence, cigarettes, uncomplicated; Z88.0 Allergy status to penicillin; Z88.8 Allergy status to other drugs, medicaments and biological substances; Z79.899 Other long term (current) drug therapy; Z79.02 Long term (current) use of antithrombotics/antiplatelets
CPT/HCPCS: 71045; 71275; 74174; 80053; 83605; 83690; 83735; 84484; 85025; 93005; 93010; 96361; 96374; 96375; 99285-25; J1171; J2270; J2405; J7030; Q9967

== ENCOUNTER → 2025-01-19 | Outpatient (CLI) | payer MEDICARE, BC ==
[~2025-01-19] MED LIST changes: +ACET500 PO; +ONDA4 PO
[2025-01-21 17:56] LABS: HSV 1 SUBTYPE BY PCR Not Detected; HSV 2 SUBTYPE BY PCR Not Detected; HSV SUBTYPE SOURCE L LEG
[2025-01-22 17:54] LABS: VARICELLA-ZOSTER VIRUS BY PCR Detected; VARICELLA-ZOSTER VIRUS SOURCE L LEG
== END ==
LOC: LAB 14:55 → LAB SHORT 14:55
PROVIDERS: Physician Assistant
DX: B02.9 Zoster without complications (principal)
CPT/HCPCS: 87529; 87798

== ENCOUNTER 2025-08-18 17:47 | Emergency (ER) | payer MEDICARE, BC ==
[~2025-08-18] VITALS: Ht 172.7 cm; Wt 72.6 kg
[2025-08-18] MEDS ORDERED: HYDROmorphone HCl/Pf 1MG SYR IV ONE ×2 (18:15→21:15)
[2025-08-18] MEDS ORDERED: Ondansetron HCl 2 MG / ML 2ML Vial IV ONE ×2 (18:15→21:15)
[2025-08-18] MEDS ORDERED: NS 1,000 ML IV SCH (18:15)
[2025-08-18 18:25] LABS: BASOPHILS ABSOLUTE AUTO 0.04 K/mm3 (0.00-0.23); BASOPHILS PERCENT AUTO 0 % (0-2); EOSINOPHILS ABSOLUTE AUTO 0.00 K/mm3 (0.00-0.68); EOSINOPHILS PERCENT AUTO 0 % (0-6); Hematocrit 44.3 % (37.0-53.0); Hemoglobin 15.8 g/dL (13.5-17.5); IMMATURE GRAN ABSOLUTE AUTO 0.04 K/mm3 (0.00-0.10); IMMATURE GRAN PERCENT AUTO 0 % (0-1); LYMPHOCYTES ABSOLUTE AUTO 1.45 K/mm3 (0.84-5.20); LYMPHOCYTES PERCENT AUTO 11 % (21-46); MONOCYTES ABSOLUTE AUTO 0.32 K/mm3 (0.16-1.47); MONOCYTES PERCENT AUTO 3 % (4-13); Mean Corpuscular HGB Conc 35.7 g/dL (31.5-36.5); Mean Corpuscular Volume 90 fL (80-100); NEUTROPHILS ABSOLUTE AUTO 10.82 K/mm3 (1.96-9.15); NEUTROPHILS PERCENT AUTO 86 % (41-73); NRBC ABSOLUTE 0.00 K/mm3 (0.00-0.02); NRBC Auto 0.0 /100 WBC (0.0-0.2); Platelet Count 225 K/mm3 (150-400); RDW Coefficient Variation 14.1 % (11.7-14.2); RDW Standard Deviation 46.9 fL (35.1-46.3)
[2025-08-18 18:49] LABS: Alanine Aminotransfer (ALT/SGP 23.0 U/L (12-78); Albumin, Blood 4.2 g/dL (3.4-5.0); Albumin/Globulin Ratio 1.0 (0.8-1.8); Anion Gap 12.0 mmol/L (3-11); Aspartate Aminotrans (AST/SGOT 17.0 U/L (12-37); Bilirubin, Total 0.6 mg/dL (0.1-1.0); Blood Urea Nitrogen 13.0 mg/dL (8-24); CO2, Blood 25.0 mmol/L (21-32); Calcium, Blood 9.7 mg/dL (8.5-10.1); Chloride, Blood 105.0 mmol/L (98-108); Creatinine, Blood 0.79 mg/dL (0.60-1.20); Globulin, Blood 4.0 g/dL (2.2-4.0); Glucose, Blood 168.0 mg/dL (70-99); Potassium, Blood 3.6 mmol/L (3.5-5.5); Sodium, Blood 138.0 mmol/L (136-145); Total Protein, Blood 8.2 g/dL (6.4-8.2)
[2025-08-18] MEDS ORDERED: RX Prepack 2 Tabs Ondansetron ODT 4MG UD ONE (21:15)
[2025-08-18] MEDS ORDERED: ONDA4ODT MM (21:26)
[2025-08-18 21:45] VITALS: BP 125/74
== END 2025-08-18 21:58 | disposition home or self-care (01) ==
LOC: ER 17:47
PROVIDERS: Emergency Medicine
DX: R10.9 Unspecified abdominal pain (principal); I10 Essential (primary) hypertension; E03.9 Hypothyroidism, unspecified; F17.200 Nicotine dependence, unspecified, uncomplicated; Z88.0 Allergy status to penicillin; Z88.5 Allergy status to narcotic agent
CPT/HCPCS: 71275; 74174; 80053; 83690; 84484; 85025; 93005; 93010; 96361; 96374; 96375; 96376; 99284-25; A9270; J1171; J2405; J7030; Q9967